=== PATIENT | female | born 1965 | race Caucasian/White ===

== ENCOUNTER → 2020-01-06 | Outpatient (CLI) | payer BC ==
--- NOTE | 2020-01-06 08:11 | RAD ---
STUDY: US Abdomen Complete INDICATION: Elevated liver function tests. COMPARISON: None. TECHNIQUE: Real-time grayscale and color Doppler sonographic evaluation of the abdomen. Findings: Pancreas: What is seen of the pancreas is unremarkable. Liver: Diffuse increased echogenicity. No focal parenchymal abnormality. Aorta/IVC/Main Portal Vein: The visualized portions of the abdominal aorta and IVC are unremarkable. Patent main portal vein. Gall Bladder: Status post cholecystectomy. Common Bile Duct: Normal caliber at 0.4 cm. Right Kidney: Measures 11.4 cm in length. Cortical thickness and echogenicity is within normal limits. No hydronephrosis. Left Kidney: Measures 12.6 cm in length. Cortical thickness and echogenicity is within normal limits. No hydronephrosis. Spleen: Within the broad range of normal for size at up to 12.6 cm in longitudinal dimension. Miscellaneous: None. Impression: 1. Diffusely increased hepatic echogenicity most commonly seen in the setting of hepatic steatosis. No other noteworthy abnormality throughout the assessed abdomen. 2. Status post cholecystectomy. Electronically signed by: YESSICA ARMSTRONG MD (01/06/2020 8:08 AM) [id number]
== END | disposition home or self-care (01) ==
LOC: US 08:15
PROVIDERS: ATTEND Internal Medicine Gastroenterology
DX: K76.0 Fatty (change of) liver, not elsewhere classified (principal); Z90.49 Acquired absence of other specified parts of digestive tract
CPT/HCPCS: 76700